=== PATIENT | female | born 1975 | race Caucasian/White ===

== ENCOUNTER 2017-03-19 16:38 | Emergency (ER) | payer MEDICAID ==
[~2017-03-19] VITALS: Ht 154.9 cm; Wt 133.8 kg
[~2017-03-19 16:38] MED LIST: ABILIFY5 MG PO; BROMFED DM COU118 ML PO; BUSPAR 10MG TAB10 MG PO; CYCLOBENZAPRINE5 MG PO; DICLOFENAC 50MG50 MG PO; DULOXETINE 30MG30 MG PO; LAMICTAL 100 M100 MG PO; LAMICTAL100 MG PO; LEVO-T25 MCG PO; MEDROL 4MG. DOSE4 MG PO; PRISTIQ100 MG PO; PROTONIX 40MG T40 MG PO; PROZAC20 MG PO; ROPINIROLE 0.0.25 MG PO; TRAMADOL 50MG T50 M1 PO; VITAMIN B COMPL1 TA3; VITAMIN B COMPL1 TA3 PO; VITAMIN D1000 IU PO; ZITHROMAX 250M250 MG PO; [UNRECOGNIZED DRUG - OTHER] PO
--- OUTSIDE RECORDS SUMMARY | 2017-03-19 16:48 | External Medical Summary Rpt ---
Author Author MARIANN Browning, MARIANN [employer] Address Unknown Phone Unavailable Results Streptococcus pyogenes Ag [Presence] in Unspecified specimen Observa Value Referen Units Interpr Notes Date tion ce etation Range Strepto NOT NOTDETE No No LOT # Nov 2 coccus DETECTE CTED informa informa [id number] 2017 pyogene D tion in tion in EXP 4:50 PM s Ag source source DATE [Presen data data 2018-12 ce] in - Unspeci fied specime n Urinalysis dipstick W Reflex Microscopic panel in Urine Observa Value Referen Units Interpr Notes Date tion ce etation Range Appeara CLEAR CLEAR No No No Oct 18 nce of informa informa informa 2017 Urine tion in tion in tion in 11:45 source source source AM data data data Bacteri 2+ O No No No Oct 18 a informa informa informa 2016 [Presen tion in tion in tion in 11:45 ce] in source source source AM Urine data data data sedimen t by Light microsc opy Bilirub NEGATIV NEG No No No Oct 18 in E informa informa informa 2016 [Presen tion in tion in tion in 11:45 ce] in source source source AM Urine data data data by Test strip Erythro NEGATIV NEG No No No Oct 18 cytes E informa informa informa 2016 [Presen tion in tion in tion in 11:45 ce] in source source source AM Urine data data data Color YELLOW YELLOW No No No Oct 18 of informa informa informa 2017 Urine tion in tion in tion in 11:45 source source source AM data data data Glucose NEG No No No Oct 18 [Mass/vol informati informati informati 2017 ume] in on in on in on in 11:45 AM Urine by source source source Test data data data strip Ketones NEGATIV NEG mg/dL No No Oct 18 E informa informa 2017 [Presen tion in tion in 11:45 ce] in source source AM Urine data data by Automat ed test strip Mucus NEGATIV NEG No No No Oct 18 [Presen E informa informa informa 2016 ce] in tion in tion in tion in 11:45 Urine source source source AM sedimen data data data t by Light microsc opy Mucus 1+ OCC No No No Oct 18 [Presen informa informa informa 2016 ce] in tion in tion in tion in 11:45 Urine source source source AM sedimen data data data t by Light microsc opy Nitrite NEGATIV NEG No No No Oct 18 E informa informa informa 2016 [Presen tion in tion in tion in 11:45 ce] in source source source AM Urine data data data by Test strip pH of 5.0 - 8.5 No Normal No Oct 18 Urine informati informati 2017 on in on in 11:45 AM source source data data Protein NEG mg/dL No No Oct 18 [Mass/vol informati informati 2017 ume] in on in on in 11:45 AM Urine by source source Automated data data test strip Specific 1.005 - No Normal No Oct 18 gravity 1.030 informati informati 2017 of Urine on in on in 11:45 AM source source data data Epithel 10-20 0 - 5 #/hpf No No Oct 18 ial informa informa 2017 cells.s tion in tion in 11:45 quamous source source AM data data [Presen ce] in Urine sedimen t by Microsc opy high power field Urobili 0.2 NEG E.U./dL No No Oct 18 nogen informa informa 2016 [Presen tion in tion in 11:45 ce] in source source AM Urine data data by Test strip Leukocyte O wbc/hpf No No Oct 18 s informati informati 2017 [#/volume on in on in 11:45 AM ] in source source Urine data data Urinalysis dipstick W Reflex Microscopic panel in Urine Observa Value Referen Units Interpr Notes Date tion ce etation Range Appeara CLEAR CLEAR No No No Oct 18 nce of informa informa informa 2017 Urine tion in tion in tion in 11:45 source source source AM data data data Bilirub NEGATIV NEG No No No Oct 18 in E informa informa informa 2016 [Presen tion in tion in tion in 11:45 ce] in source source source AM Urine data data data by Test strip Erythro NEGATIV NEG No No No Oct 18 cytes E informa informa informa 2016 [Presen tion in tion in tion in 11:45 ce] in source source source AM Urine data data data Color YELLOW YELLOW No No No Oct 18 of informa informa informa 2017 Urine tion in tion in tion in 11:45 source source source AM data data data Glucose NEG No No No Oct 18 [Mass/vol informati informati informati 2017 ume] in on in on in on in 11:45 AM Urine by source source source Test data data data strip Ketones NEGATIV NEG mg/dL No No Oct 18 E informa informa 2016 [Presen tion in tion in 11:45 ce] in source source AM Urine data data by Automat ed test strip Mucus NEGATIV NEG No No No Oct 18 [Presen E informa informa informa 2016 ce] in tion in tion in tion in 11:45 Urine source source source AM sedimen data data data t by Light microsc opy Nitrite NEGATIV NEG No No No Oct 18 E informa informa informa 2016 [Presen tion in tion in tion in 11:45 ce] in source source source AM Urine data data data by Test strip pH of 5.0 - 8.5 No Normal No Oct 18 Urine informati informati 2017 on in on in 11:45 AM source source data data Protein NEG mg/dL No No Oct 18 [Mass/vol informati informati 2017 ume] in on in on in 11:45 AM Urine by source source Automated data data test strip Specific 1.005 - No Normal No Oct 18 gravity 1.030 informati informati 2016 of Urine on in on in 11:45 AM source source data data Urobili 0.2 NEG E.U./dL No No Oct 18 nogen informa informa 2016 [Presen tion in tion in 11:45 ce] in source source AM Urine data data by Test strip Free T4 & TSH panel in Serum or Plasma Observa Value Referen Units Interpr Notes Date tion ce etation Range Thyroxine 5.93 - ug/dl Normal No Oct 18 (T4) 13.13 2016 free on in 11:10 AM index in source Serum or data Plasma Triiodoth 31 - 39 % Normal No Oct 18 yronine 2016 (T3) on in 11:10 AM resin source uptake in data Serum or Plasma Thyroxine 4.7 - ug/dl Normal No Oct 18 (T4) 13.3 2016 [Mass/vol on in 11:10 AM ume] in source Serum or data Plasma Thyrotrop 0.358 - uIU/ml No Oct 18 in 3.740 informati inform2016 [Units/vo on in on in 11:10 AM lume] in source source Serum or data data Plasma CBC W Auto Differential panel in Blood Observa Value Referen Units Interpr Notes Date tion ce etation Range Basophils 0 - 0.2 K/MM3 Normal No Oct 182016 [#/volume on in 11:10 AM ] in source Blood by data Automated count Basophils 0.1 - 2.0 % Normal No Oct 18 /100 2016 leukocyte on in 11:10 AM s in source Blood by data Automated count Eosinophi 0.0 - 0.4 K/mm3 Normal No Oct 18 ls 2016 [#/volume on in 11:10 AM ] in source Blood by data Automated count Eosinophi 0.1 - % Normal No Oct 18 ls/100 12.0 2016 leukocyte on in 11:10 AM s in source Blood by data Automated count Granulocy 1.8 - 7.8 K/mm3 High No Oct 18 nelli 2016 [#/volume on in 11:10 AM ] in source Blood by data Automated count Granulocy 37.0 - % Normal No Oct 18 nelli/100 80.0 2016 leukocyte on in 11:10 AM s in source Blood by data Automated count Hematocri 37.0 - % Normal No Oct 18 t [Volume 47.0 2016 on in 11:10 AM Fraction] source of Blood data Hemoglobi 12.2 - g/dL Normal No Oct 18 n 16.2 2016 [Mass/vol on in 11:10 AM ume] in source Blood data Lymphocyt 0.7 - 4.5 K/mm3 High No Oct 18 es 2016 [#/volume on in 11:10 AM ] in source Unspecifi data ed specimen by Automated count Lymphocyt 10 - 50.0 % Normal No Oct 18 es informati 2016 [#/volume on in 11:10 AM ] in source Unspecifi data ed specimen by Automated count Erythrocy 27 - 31.2 pg High No Oct 18 te mean inform2016 corpuscul on in 11:10 AM ar source hemoglobi data n [Entitic mass] Erythrocy 31.8 - g/dl Normal No Oct 18 te mean 35.4 inform2016 corpuscul on in 11:10 AM ar source hemoglobi data n concentra tion [Mass/vol ume] by Automated count Erythrocy 82.2 - fl Normal No Oct 18 te mean 97.8 inform2016 corpuscul on in 11:10 AM ar volume source [Entitic data volume] by Automated count Monocytes 0.1 - 1.0 K/mm3 Normal No Oct 18 inform2016 [#/volume on in 11:10 AM ] in source Blood by data Automated count Monocytes 1.7 - 9.3 % Normal No Oct 18 /100 inform2016 leukocyte on in 11:10 AM s in source Blood by data Automated count Platelet 7.4 - fl Low No Oct 18 mean 10.4 inform2016 volume on in 11:10 AM [Entitic source volume] data in Blood by Automated count Platelets 142 - 424 K/mm3 High No Oct 18 informati 2016 [#/volume on in 11:10 AM ] in source Blood data Erythrocy 4.2 - 5.4 M/mm3 Normal No Oct 18 nelli informati 2016 [#/volume on in 11:10 AM ] in source Amniotic data fluid Erythrocy 11.5 - % Normal Oct 18 te 17.5 2016 distribut on in 11:10 AM ion width source [Entitic data volume] by Automated count Leukocyte 4.8 - K/MM3 High No Oct 18 s 10.8 informati 2016 [#/volume on in 11:10 AM ] in source Blood data
--- OUTSIDE RECORDS SUMMARY | 2017-03-19 16:48 | External Medical Summary Rpt | CCD ---
Demographics Preferred Language Czech Marital Status Unknown Congregation Affiliation Unknown Race Unknown Ethnic Group Unknown Author Author , MARIANN WAITE Address Unknown Phone Immunization No patient found.
--- OUTSIDE RECORDS SUMMARY | 2017-03-19 16:48 | External Medical Summary Rpt | CCD ---
Author Author , MARIANN Organization [facility] Address Unknown Phone Purpose Continuity of Care Document - 07-03-2016 through 2016 Problems Code Diagnosis DOS Provider Status S83.222A PERIPHERAL 09-26-2016 TEAR OF MEDIAL MENISCUS, CURRENT INJURY, LEFT KNEE, INITIAL ENCOUNTER M25.562 PAIN IN 08-27-2016 LEFT KNEE F41.9 ANXIETY 07-12-2016 DISORDER, UNSPECIFIED M54.5 LOW BACK 07-12-2016 PAIN M54.41 LUMBAGO 07-03-2016 WITH SCIATICA, RIGHT SIDE R07.89 OTHER CHEST PAIN Z87.39 PERSONAL HISTORY OF DISEASES OF THE MS SYS AND CONN TISS Results Labs Lab Lab Date Result Refere Interp Status Commen Order Detail nces retati t Range on Screening group A Streptococcus antigen (02-28-2017 16:50) Screeni NOT NOTDETE complet ng 017 DETECTE CTED ed group A 16:50 D NOT DETECTE Strepto D L coccus antigen Streptococcus pyogenes Ag [Presence] in Unspecified specimen (02-28-2017 16:50) Strepto NOT NOTDETE complet coccus 017 DETECTE CTED ed pyogene 16:50 D s Ag [Presen ce] in Unspeci fied specime n Hgb A1c MFr Bld (11-08-2016 14:39) Hgb A1c 5.9 % 4.7-6.0 complet MFr 017 ed Bld 14:39 Urinalysis dipstick W Reflex Microscopic panel in Urine (10-18-2016 11:45) Bacteri 2+ O complet a 017 ed [Presen 11:45 ce] in Urine sedimen t by Light microsc opy Mucus 1+ OCC complet [Presen 017 ed ce] in 11:45 Urine sedimen t by Light microsc opy Epithel 10-20 0#/hp complet ial 017 f - ed cells.s 11:45 5#/hp quamous f [Presen ce] in Urine sedimen t by Microsc opy high power field Urinalysis dipstick W Reflex Microscopic panel in Urine (10-18-2016 11:45) Appeara CLEAR CLEAR complet nce of 017 ed Urine 11:45 Bilirub NEGATIV NEG complet in 017 E ed [Presen 11:45 ce] in Urine by Test strip Erythro NEGATIV NEG complet cytes 017 E ed [Presen 11:45 ce] in Urine Color YELLOW YELLOW complet of 017 ed Urine 11:45 Ketones NEGATIV NEG complet 017 E ed [Presen 11:45 ce] in Urine by Automat ed test strip Mucus NEGATIV NEG complet [Presen 017 E ed ce] in 11:45 Urine sedimen t by Light microsc opy Nitrite NEGATIV NEG complet 017 E ed [Presen 11:45 ce] in Urine by Test strip Urobili 10-18-2 0.2 NEG complet nogen 017 ed [Presen 11:45 ce] in Urine by Test strip
--- OUTSIDE RECORDS SUMMARY | 2017-03-19 16:48 | External Medical Summary Rpt ---
Author Author MARIANN Browning, MARIANN [employer] Address Unknown Phone Unavailable Results Streptococcus pyogenes Ag [Presence] in Unspecified specimen Observa Value Referen Units Interpr Notes Date tion ce etation Range Strepto NOT NOTDETE No No LOT # Nov 2 coccus DETECTE CTED informa informa [id number] 2017 pyogene D tion in tion in [...]
--- OUTSIDE RECORDS SUMMARY | 2017-03-19 16:48 | External Medical Summary Rpt | CCD ---
Demographics Preferred Language Lao Marital Status Unknown Episcopalian Affiliation Unknown Race Unknown Ethnic Group Unknown Author Author , MARIANN WAITE Address Unknown Phone Immunization No patient found.
--- OUTSIDE RECORDS SUMMARY | 2017-03-19 16:48 | External Medical Summary Rpt | CCD ---
Author Author , MARIANN Organization [facility] Address Unknown Phone [email or web address] Purpose Continuity of Care Document - 07-03-2016 [...]
--- NOTE | 2017-03-19 17:19 | Urgent Treatment Center Report ---
History of Present Issue Date/Time Seen by Provider 03/19/17 4588 Visit Reason Pt arrived:Walked Presenting Problem:PT C/O BILATERAL EAR PAIN AND VERTIGO. Location if Accident: Onset of symptoms date/time:/ or onset unknown for:MEDICAL HX UNKNOWN Have you (or family members/close friends) recently traveled outside the [place]? N If Yes, where/when: Have you had exposure to infectious disease within the past month? TB? Other? Specify: States that she has been having feeling of pain and fullness in both ears and noticed that she is having dizziness when she moves quickly or bends over State that she feels like she may have fluid in her ears that is starting to offset her balance State that she feels like the fluid moves and makes her dizzy ALLERGIES Coded Allergies: latex (Intermediate, I-RASH 10/18/16) egg ("TOO SLEEPY" 10/18/16) Home Medications Active Scripts D-METHORPHAN HB/P-EPD HCL/BPM (Bromfed Dm Cough Syrup) 10 ML PO QIDP PRN cough #240 ML Prov: 02/28/17 Methylprednisolone (Medrol Dose [place]) 4 MG PO UD #1 HILL Prov: 02/28/17 Reported Medications TRAMADOL HCL (Tramadol) 100 MG PO BID Pantoprazole Sodium (Protonix 40MG TAB) 40 MG PO DAILY DICLOFENAC SODIUM (Diclofenac 50MG) 75 MG PO BID Levothyroxine Sodium (Levo-T) 25 MCG PO DAILY Lamotrigine (Lamictal) 100 MG PO QAM Lamotrigine (Lamictal 100Mg) 200 MG PO QHS Duloxetine Hcl (Duloxetine 30MG Capsule) 60 MG PO DAILY Buspirone Hcl (Buspar 10MG) 10 MG PO TID CHOLECALCIFEROL (VITAMIN D3) (Vitamin D3) 5,000 IUNITS PO DAILY History Medical History General CAD? No Angina: No [place]: No Hypertension? No Hyperlipidemia? No CHF? No DVT? No PE? No COPD? Yes Asthma? Yes Anemia? Yes GERD? Yes Gastric ulcers? No GI Bleed? No Hernia? Yes Thyroid Problems? No Hypothyroidism? No CVA? No Seizures? Yes Diabetes? No Renal Insuffiency? No UTI? Yes Stones? Yes BPH? No GB Disease: Yes Nephritic Syndrome? No Asplenia? No Hepatitis? No Sickle Cell Disease? No Arthritis? No Migraines? No Cataracts? No Glaucoma? No MRSA? No HIV? No TB? No Anxiety? No Depression? No Cancer? No More? 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 Physical Exam Vital Signs Vital Signs Date Time Temp Pulse Resp B/P Pulse O2 O2 Flow FiO2 Ox Delivery Rate 03/19 1701 98.0 85 20 146/100 95 General Appearance normal appearance, WD/WN, no apparent distress Ear, Nose, Throat hearing grossly normal, Bilateral fluid noted, no redness TM buldging Respiratory Status Yes: trachea midline, chest symmetrical, non tender chest. No: respiratory distress. Lung Sounds bilateral: normal breath sounds, lungs clear. Cardiovascular normal exam, regular rate/rhythm Neurologic alert, normal exam, oriented x 3 Medical Decision Making LABS/Meds/Orders Pt receiving controlled substance in ED? No Results/Orders Current Medication Orders Sig/Robby Start time Last Medication Dose Route Stop Time Status Admin Meclizine HCl 0 .STK-MED ONE 03/19 1720 DC .ROUTE Meclizine HCl 25 MG ONCE ONE 03/19 171 DC 03/19 PO 03/19 1716 172 Progress [facility] Progress Notes Comment Patient states that medication helped with dizziness state that she is feeling much better Departure Departure Time of Disposition 1738 Disposition DC Home or Self Care(routine) Clinical Impression Primary Impression: Vertigo Condition STABLE Referrals SONIA HYLTON (Family): 2 Days-Call Office If no improvement or worsening of symtpoms Patient Instructions DI for Vertigo, Vertigo Additional Instructions Follow up with family doctor REturn if needed Take medication as prescribed Make slow movements and do not stand or bend over quickly as this may make dizziness worse Discharge Counseling Counseled pt/family regarding diagnosis, medications/RX, home care, follow up needs Prescriptions Current Visit Scripts MECLIZINE HCL (Meclizine 25MG) 25 MG PO BID #60 TABLET at 9245
[2017-03-19] MEDS ORDERED: MECLIZINE 25MG25 MG PO (17:38)
[2017-03-19 17:39] VITALS: BP 146/88
== END 2017-03-19 17:41 | disposition home or self-care (01) ==
LOC: UTC 16:38
DX: R42 Dizziness and giddiness (principal); K21.9 Gastro-esophageal reflux disease without esophagitis